=== PATIENT | female | born 1995 | race Caucasian/White ===

== ENCOUNTER 2025-01-06 09:12 | Day surgery (SDC) | payer MEDICAID ==
[~2025-01-06 09:12] MED LIST: Sodium Chloride 0.9% 10 ML Syringe FLUSH PRN; Sodium Chloride 0.9% 10 ML Syringe FLUSH SCH
[2025-01-06] MEDS ORDERED: fentaNYL 250 MCG/5 ML SDV ONE (09:22)
[2025-01-06] MEDS ORDERED: Propofol 200 MG/20 ML SDV ONE (09:22)
[2025-01-06] MEDS ORDERED: propofoL 1,000 MG/100 ML 100 ML ONE (09:22)
[2025-01-06] MEDS ORDERED: Midazolam 1 MG/ML 2 ML SDV ONE ×2 (09:22→10:06)
[2025-01-06] MEDS ORDERED: Ketamine HCL/NACL, ISO-OSM 50 MG/5 ML Syringe ONE (09:22)
[2025-01-06] MEDS ORDERED: dexmedeTOMIDine HCl 200 MCG/2 ML SDV ONE (09:22)
[2025-01-06] MEDS ORDERED: Dexamethasone 4 MG/ML 5 ML MDV ONE (09:22)
[2025-01-06] MEDS ORDERED: Ondansetron 4 MG/2 ML SDV ONE (09:22)
[2025-01-06 09:38] LABS: APPEARANCE,URINE CLEAR (Clear); GLUCOSE,URINE NEGATIVE (Negative); OCCULT BLOOD,URINE NEGATIVE (Negative)
[2025-01-06 09:40] LABS: BASOPHILS ABSOLUTE AUTO 0.0 K/mm3 (0.0-0.2); BASOPHILS PERCENT AUTO 0.7 % (0.0-1.0); EOSINOPHILS ABSOLUTE AUTO 0.1 K/mm3 (0.0-0.4); EOSINOPHILS PERCENT AUTO 1.5 % (0.0-6.0); IMMATURE GRAN ABSOLUTE AUTO 0.02 K/mm3 (0.00-0.05); IMMATURE GRAN PERCENT AUTO 0.3 % (0.0-0.4); LYMPHOCYTES ABSOLUTE AUTO 2.2 K/mm3 (1.0-4.8); LYMPHOCYTES PERCENT AUTO 35.9 % (24.0-44.0); MEAN PLATELET VOLUME 9.6 fl (9.4-12.3); MONOCYTES ABSOLUTE AUTO 0.5 K/mm3 (0.0-0.8); MONOCYTES PERCENT AUTO 8.4 % (0.0-8.0); NEUTROPHILS ABSOLUTE AUTO 3.3 K/mm3 (1.8-7.7); NEUTROPHILS PERCENT AUTO 53.2 % (41.0-71.0); NRBC ABSOLUTE 0.00 (0.00-0.02); NRBC PERCENT 0.0 % (0.0-0.2); PLATELET COUNT,PLT 274 K/mm3 (150-400); RED BLOOD CELL COUNT 4.85 M/mm3 (4.10-5.30); WHITE BLOOD CELL COUNT,WBC 6.10 K/mm3 (3.9-11.3)
[2025-01-06] MEDS: Lactated Ringers 1,000 ML IV SCH (09:45)
[2025-01-06 10:07] LABS: A/G RATIO 0.9 (1-2); ALANINE AMINOTRANSFERASE,ALT 27 U/L (14-59); ASPARTATE AMNIOTRANSFERASE,AST 21 U/L (15-37); BILIRUBIN TOTAL 0.6 mg/dL (0.2-1.0); BLOOD UREA NITROGEN,BUN 21 mg/dL (7-18); CARBON DIOXIDE,CO2 25 mEq/L (21-32); CHLORIDE,CL 101 mEq/L (98-107); CREATININE 0.8 mg/dL (0.55-1.02); ESTIMATED GFR 101 mL/min (>60); GLUCOSE RANDOM 88 mg/dL (70-99); POTASSIUM,K 3.8 mEq/L (3.5-5.1); PROTEIN TOTAL,TP 7.5 g/dl (6.4-8.2); SODIUM,NA 138 mEq/L (136-145)
[2025-01-06] MEDS: EPINEPHrine 1 MG/ML SDV ONE (10:11)
[2025-01-06] MEDS ORDERED: Ondansetron 4 MG/2 ML SDV IVPUSH PRN (10:32)
[2025-01-06] MEDS ORDERED: propofoL 500 MG/50 ML 50 ML ONE (10:41)
[2025-01-06] MEDS ORDERED: Ketorolac 30 MG/ML SDV ONE (10:58)
[2025-01-06] MEDS: fentaNYL 100 MCG/2 ML SDV IVPUSH PRN (12:09)
== END 2025-01-06 14:05 ==
LOC: JD.SDS 09:12
PROVIDERS: ATTEND Obstetrics & Gynecology
DX: N81.10 Cystocele, unspecified (principal); N39.3 Stress incontinence (female) (male); Z88.8 Allergy status to other drugs, medicaments and biological substances; Z91.013 Allergy to seafood; Z79.899 Other long term (current) drug therapy; Z87.891 Personal history of nicotine dependence; Z98.890 Other specified postprocedural states
CPT/HCPCS: 36415; 57240; 57288; 80053; 81003; 85025; J0169; J0665; J0690; J1100; J1885; J2003; J2250; J2405; J2704; J3010; J7120; J3490